=== PATIENT | female | born 1975 | race American Indian/Alaskan Native ===

== ENCOUNTER 2017-05-22 16:47 | Emergency (ER) | payer OTHER ==
--- NOTE | 2017-05-22 18:38 | XRay Report ---
FINAL REPORT PROCEDURE: XR FOOT 3+V LT TECHNIQUE: Left foot, four views HISTORY: LEFT FOOT PAIN / SWELLING COMPARISON: No prior studies are available for comparison. FINDINGS: There is dorsal soft tissue swelling. No acute fracture or dislocation is seen. No radiopaque foreign body is seen. IMPRESSION: No acute fracture is seen
[2017-05-22] MEDS ORDERED: TORADOL IM ONE (19:46)
--- NOTE | 2017-05-22 19:51 | Emergency Department Report ---
ED Lower Extremity HPI - General Chief Complaint: Extremity Injury, Lower Stated Complaint: LT FOOT PAIN/BURNING/POSS INFECTION Time Seen by Provider: 05/22/17 19:35 Source: patient Mode of arrival: Ambulatory Limitations: No Limitations - History of Present Illness Initial Comments: left foot pain and swelling sudden onset 8 days ago pain difficulty ambulating , hot to touch pt denies fall injury or trauma MD Complaint: foot injury Onset/Timin -: days(s) Injury: Foot: Left Type of Injury: other Place: home Severity: moderate Severity scale (0 -10): 5 Improves With: nothing Worsens With: weight bearing, movement, palpation Context: other (none) Associated Symptoms: swelling, able to partially bear weight - Related Data Previous Rx's Medication Instructions Recorded Last Taken Type Indomethacin [Indocin] 25 mg PO Q8H #30 capsule 05/22/17 Unknown Rx predniSONE [Deltasone] 40 mg PO DAILY #10 tablet 05/22/17 Unknown Rx Allergies Allergy/AdvReac Type Severity Reaction Status Date / Time No Known Allergies Allergy Unverified 05/22/17 16:59 ED Review of Systems ROS: Stated complaint: LT FOOT PAIN/BURNING/POSS INFECTION Other details as noted in HPI Constitutional: denies: chills, fever Eyes: denies: eye pain, eye discharge, vision change ENT: denies: ear pain, throat pain Respiratory: denies: cough, shortness of breath, wheezing Cardiovascular: denies: chest pain, palpitations Endocrine: no symptoms reported Gastrointestinal: denies: abdominal pain, nausea, diarrhea Genitourinary: denies: urgency, dysuria, discharge Musculoskeletal: denies: back pain, joint swelling, arthralgia Skin: rash (dry flaky bilat LE ). denies: lesions Neurological: denies: headache, weakness, paresthesias Psychiatric: denies: anxiety, depression Hematological/Lymphatic: denies: easy bleeding, easy bruising ED Past Medical Hx - Past Medical History Hx Hypertension: Yes Additional medical history: OBESITY. ECZEMA - Surgical History Additional Surgical History: X 3. TUBAL LIGATION - Social History Smoking Status: Never Smoker Substance Use Type: Alcohol - Medications Home Medications: Home Medications Medication Instructions Recorded Confirmed Last Taken Type Indomethacin [Indocin] 25 mg PO Q8H #30 capsule 05/22/17 Unknown Rx predniSONE [Deltasone] 40 mg PO DAILY #10 tablet 05/22/17 Unknown Rx ED Physical Exam - General Limitations: No Limitations General appearance: alert, in no apparent distress - Head Head exam: Present: atraumatic, normocephalic - Eye Eye exam: Present: normal appearance - ENT ENT exam: Present: mucous membranes moist - Neck Neck exam: Present: normal inspection - Respiratory Respiratory exam: Present: normal lung sounds bilaterally. Absent: respiratory distress - Cardiovascular Cardiovascular Exam: Present: regular rate, normal rhythm. Absent: systolic murmur, diastolic murmur, rubs, gallop - GI/Abdominal GI/Abdominal exam: Present: soft, normal bowel sounds - Rectal Rectal exam: Present: deferred - Expanded Lower Extremity Exam Left Hip exam: Present: normal inspection, full ROM Upper Leg exam: Present: normal inspection, full ROM Knee exam: Present: normal inspection, full ROM Lower Leg exam: Present: normal inspection, full ROM Ankle exam: Present: full ROM, tenderness, swelling. Absent: abrasion, laceration, ecchymosis, deformity, crepidus, dislocation, erythema, anterior draw sign Foot/Toe exam: Present: tenderness, swelling. Absent: abrasion, laceration, ecchymosis, deformity, crepidus, dislocation, erythema, amputation, puncture wound, foreign body, calcaneal tenderness, tenderness at base of 5th metatarsal , nail avulsion, subungual hematoma Neuro vascular tendon exam: Present: no vascular compromise. Absent: pulse deficit, abnormal cap refill, motor deficit, sensory deficit, tendon deficit, extremity cold to touch, pallor, abnormal 2-point discrimination, decreased fine /light touch, foot drop, peroneal nerve deficit, significant pain with passive ROM of distal joint Gait: Positive: observed and limited by pain. Negative: antalgic - Back Exam Back exam: Present: normal inspection, full ROM. Absent: tenderness, CVA tenderness (R), CVA tenderness (L), muscle spasm, paraspinal tenderness, vertebral tenderness, rash noted - Neurological Exam Neurological exam: Present: alert, oriented X3, CN II-XII intact, reflexes normal - Psychiatric Psychiatric exam: Present: normal affect, normal mood - Skin Skin exam: Present: warm, dry, intact, normal color, rash (dry scaling flaky bilat feet and ankles ). Absent: cyanosis, diaphoretic, erythema, urticaria, vesicles, petechiae, pallor, abrasion, ecchymosis ED Course Vital Signs 05/22/17 05/22/17 17:03 19:29 Temperature 97.8 F Pulse Rate 100 H Respiratory 17 18 Rate Blood Pressure 160/103 O2 Sat by Pulse 100 100 Oximetry ED Lower Extremity MDM - Medical Decision Making pt is a 41 y/o aaf, obese, who presents after being seen in urgent care 8 days ago, pt denies fall injury or trauma, pt works standing 8-10 hrs daily , seen by doctor today advised that she needed steriods , [facility] complaining of left foot and ankle pain and swelling x 8 days endorse foot to hot to touch, with lateral dorsal swelling PPEPB+2, [employer] <3 sec bilt , pt is ambulatory with mild discomfort however not requiring assistive devices , rom intact pain to palpation foot is warm touch there is no erythema no deformity no no drawer Concern if for gout, foot xray normal with soft tissue swelling, plan indomethacin, prednisone and follow up with primary care doctor in next week, pt has no hx of gi bleeding is tolerating po intake without difficulty, pt advised to eat with indomethacin , pt verbalized agreement and understanding with discharge plan. pt endorses pain decreased to 2/10 with toradol and prednisone given in ecc. , Critical care attestation.: If time is entered above; I have spent that time in minutes in the direct care of this critically ill patient, excluding procedure time. ED Disposition Clinical Impression: Foot pain Qualifiers: Laterality: left Qualified Code(s): M79.672 - Pain in left foot Disposition: DC- TO HOME OR SELFCARE Is pt being admited?: No Does the pt Need Aspirin: No Condition: Good Instructions: Arthralgia (ED) Prescriptions: Indomethacin [Indocin] 25 mg PO Q8H #30 capsule predniSONE [Deltasone] 40 mg PO DAILY #10 tablet Referrals: PRIMARY CARE, [Primary Care Provider] - 3-5 Days Forms: Work/School Release Form(ED) Time of Disposition: 20:04
[2017-05-22] MEDS ORDERED: DELTASONE PO ONE (19:52)
[2017-05-22] MEDS ORDERED: TORADOL ONE (20:02)
[2017-05-22 20:16] VITALS: BP 155/96
== END 2017-05-22 20:17 | disposition home or self-care (01) ==
LOC: ED 16:47
DX: M79.672 Pain in left foot (principal); I10 Essential (primary) hypertension; E66.9 Obesity, unspecified; X58.XXXA Exposure to other specified factors, initial encounter; Y93.89 Activity, other specified; Y99.8 Other external cause status; Y92.89 Other specified places as the place of occurrence of the external cause
CPT/HCPCS: 73630; 96372; 99283; J1885; J7512